=== PATIENT | female | born 1990 | race Caucasian/White ===

== ENCOUNTER 2019-12-07 20:00 | Emergency (ER) | payer MEDICAID ==
[~2019-12-07] VITALS: Ht 154.9 cm; Wt 62.1 kg
[2019-12-07 20:04] VITALS: BP 122/83
--- NOTE | 2019-12-07 20:10 | NUR ---
PT TAKEN TO BED 4
--- NOTE | 2019-12-07 20:12 | NUR ---
PT AMBULATED TO RESTROOM WITH STEADY GAIT.
--- NOTE | 2019-12-07 20:15 | NUR ---
PT29 Y/O FEMALE BIB SELF FOR C/O PAINFUL URINATION X 3 DAYS WITH 9/10 FLANK PAIN RADIATING TO LEFT FLANK. PT ALSO HAD C/O SUPRAPUBIC TENDERNESS AND "FEELING BLOATED." RESPIRATIONS ARE EVEN AND UNLABORED. SKIN IS WARM AND DRY TO TOUCH. DENIES COUGH. DENIES N/V/D. UA SAMPLE COLLECTED. MEDHX: NONE ALLERGIES: NKA
--- NOTE | 2019-12-07 20:20 | NUR ---
Carmelita lezama in [facility] - 12/07/19 at [address] Arana examining patient.
--- NOTE | 2019-12-07 20:35 | NUR ---
Dr. Arana examining patient.
[2019-12-07] MEDS ORDERED: KETOROLAC 60 MG/2 ML VIAL IM ONE (20:40)
[2019-12-07 21:00] VITALS: BP 122/83
--- NOTE | 2019-12-07 21:00 | NUR ---
Patient discharged with v/s stable. Written and verbal after care instructions given and explained. Patient alert, oriented and verbalized understanding of instructions. Ambulatory with steady gait. All questions addressed prior to discharge. ID band removed. Patient advised to follow up with PMD. Rx of PYRIDIUM, MOTRIN, CIPRO given. Patient educated on indication of medication including possible reaction and side effects. Opportunity to ask questions provided and answered.
== END 2019-12-07 21:00 | disposition home or self-care (01) ==
LOC: MED 20:00
DX: N39.0 Urinary tract infection, site not specified (principal)
CPT/HCPCS: 81002; 81025; 96372; 99283; J1885